=== PATIENT | female | born 1955 | race Caucasian/White ===

== ENCOUNTER 2020-09-03 03:09 | Emergency (ER) | payer MEDICARE ==
[~2020-09-03 03:09] MED LIST: ASPIRIN CHEWABL81 MG PO; FLEXERIL 5 MG PO; Voltaren Gel 1 % TOP
[2020-09-03 03:44] LABS: HEMOGLOBIN 14.1 gm/dl (12.3-15.3); RED BLOOD COUNT 4.6 M/UL (4.00-5.10); WHITE BLOOD COUNT 8.4 K/UL (4.5-11.0)
[2020-09-03 04:11] LABS: BUN/CREATININE RATIO 12 (0-10)
[2020-09-03] MEDS ORDERED: K-DUR TAB 20 M20 MEQ PO (06:54)
== END 2020-09-03 07:01 | disposition home or self-care (01) ==
LOC: ER1 03:09
PROVIDERS: Emergency Medicine
DX: I16.0 Hypertensive urgency (principal); I10 Essential (primary) hypertension; R42 Dizziness and giddiness; E87.6 Hypokalemia; J44.9 Chronic obstructive pulmonary disease, unspecified; F17.200 Nicotine dependence, unspecified, uncomplicated; Z88.0 Allergy status to penicillin
CPT/HCPCS: 70450; 71045; 80053; 82550; 82553; 83690; 83735; 83874; 83880; 84100; 84484; 85025; 85610; 85730; 93005; 99285; J3480

== ENCOUNTER → 2020-12-22 | Outpatient (CLI) | payer MEDICARE ==
[~2020-12-22] MED LIST changes: +K-DUR TAB 20 M20 MEQ PO
== END ==
LOC: MRI 12:13
DX: R90.89 Other abnormal findings on diagnostic imaging of central nervous system (principal); I82.C12 Acute embolism and thrombosis of left internal jugular vein
CPT/HCPCS: 70553; 93971; A9577

== ENCOUNTER 2021-04-15 21:02 | Emergency (ER) | payer MEDICARE | END 2021-04-15 21:35 | disposition left against medical advice (07) | LOC: ER1 21:02 | DX: Z53.21 Procedure and treatment not carried out due to patient leaving prior to being seen by health care provider (principal) ==

== ENCOUNTER → 2021-06-20 | Outpatient (CLI) | payer MEDICARE | LOC: MRI 06-15 11:00 | DX: M51.16 Intervertebral disc disorders with radiculopathy, lumbar region (principal); M48.061 Spinal stenosis, lumbar region without neurogenic claudication | CPT/HCPCS: 72148 ==